=== PATIENT | female | born 1960 | race Caucasian/White ===

== ENCOUNTER → 2016-08-03 | Outpatient (CLI) | payer BC ==
[~2016-08-03] MED LIST: CLEOCIN HCL300 MG PO; PERCOCET 325 MG1 TA2 PO; ZOFRAN 4MG T4 MG/TAB PO
== END ==
LOC: MC.RAD 07:00
DX: Z12.31 Encounter for screening mammogram for malignant neoplasm of breast (principal)

== ENCOUNTER → 2017-08-27 | Outpatient (CLI) | payer BC | LOC: MC.RAD 08:12 | DX: Z12.31 Encounter for screening mammogram for malignant neoplasm of breast (principal) ==

== ENCOUNTER 2018-08-29 06:30 | Day surgery (SDC) | payer BC ==
[~2018-08-29] VITALS: Ht 160 cm; Wt 78.1 kg
[2018-08-29] MEDS ORDERED: CENTRUM SILVER1 CTB PO (06:48)
[2018-08-29] MEDS ORDERED: CITRACAL + D CA1 TAB (06:49)
[2018-08-29 07:15] VITALS: BP 111/68; PULSE 78; TEMP 98.5
[2018-08-29 07:56] VITALS: BP 99/62; PULSE 64; TEMP 97.7
[2018-08-29 08:11] VITALS: BP 101/64; PULSE 68
--- NOTE | 2018-08-29 08:19 | NUR ---
PATIENT RETURNS VIA CART TO BAY 5. ALERT AND ORIETNED X 4. HEARTRATE REGULAR SINUS RYTHYM, LUNGS CLEAR BILATERALLY, BOWEL SOUNDS ALL 4 QUADRANTS. GIVEN JUICE AND BLUEBERRY MUFFIN. POST OP VS STARTED. AT BEDSIDE. CALL LIGHT IN REACH. PHYSICIAN IN ROOM WITH DISCHARGE TEACHING.
--- NOTE | 2018-08-29 08:22 | NUR ---
PATIENT REMAINS STABLE, GAIT STEADY TO BATHROOM. DENIES N/V OR PAIN. WILL CONTINUE TO MONITOR. CALL LIGHT IN REACH. REMAINS AT BEDSIDE.
[2018-08-29 08:26] VITALS: BP 106/72; PULSE 66; TEMP 97.7
[2018-08-29 08:40] VITALS: BP 107/86; PULSE 68; TEMP 98
--- NOTE | 2018-08-29 09:11 | NUR ---
MILD NAUSEA AND VOMITTING NOTED. EMESIS BAG GIVEN, PATIENT DECLINES ANY OTYHER INTERVENTION AT THIS TIME. CALL LIGHT IN REACH.
--- NOTE | 2018-08-29 09:12 | NUR ---
PATIENT DISCHARGE INSTRUCTIONS GIVEN TO PATIENT AND SPOUSE. BOTH VERBALIZED UNDERSTANDING. IV DC'D. PRESSURE HELD. DENIES QUESTIONS. PATIENT TAKEN TO PERSONAL VEHICHLE VIA WHEELCHAIR, HOME WITH HER .
== END 2018-08-29 09:18 | disposition home or self-care (01) ==
LOC: SDCO 06:30
DX: Z12.11 Encounter for screening for malignant neoplasm of colon (principal)
CPT/HCPCS: J2250; J3010; J7030

== ENCOUNTER → 2018-09-05 | Outpatient (CLI) | payer BC ==
[~2018-09-05] MED LIST changes: +CENTRUM SILVER1 CTB PO; +CITRACAL + D CA1 TAB
== END ==
LOC: MC.RAD 07:54
DX: Z12.31 Encounter for screening mammogram for malignant neoplasm of breast (principal); N63.10 Unspecified lump in the right breast, unspecified quadrant; N63.20 Unspecified lump in the left breast, unspecified quadrant

== ENCOUNTER → 2018-09-10 | Outpatient (CLI) | payer BC | LOC: MC.RAD 10:58 | DX: R59.0 Localized enlarged lymph nodes (principal); R92.8 Other abnormal and inconclusive findings on diagnostic imaging of breast ==

== ENCOUNTER → 2019-04-06 | Outpatient (CLI) | payer BC | LOC: MC.RAD 14:05 | DX: N63.0 Unspecified lump in unspecified breast (principal) ==

== ENCOUNTER → 2019-09-14 | Outpatient (CLI) | payer BC | LOC: MC.RAD 16:46 | DX: Z12.31 Encounter for screening mammogram for malignant neoplasm of breast (principal); N63.20 Unspecified lump in the left breast, unspecified quadrant ==

== ENCOUNTER → 2019-09-18 | Outpatient (CLI) | payer BC | LOC: MC.RAD 10:00 | DX: N63.20 Unspecified lump in the left breast, unspecified quadrant (principal) | CPT/HCPCS: G0279 ==

== ENCOUNTER → 2020-11-04 | Outpatient (CLI) | payer BC | LOC: MC.RAD 07:45 | DX: Z12.31 Encounter for screening mammogram for malignant neoplasm of breast (principal) ==

== ENCOUNTER → 2021-11-15 | Outpatient (CLI) | payer BC | LOC: MC.RAD 07:53 | DX: Z12.31 Encounter for screening mammogram for malignant neoplasm of breast (principal) ==

== ENCOUNTER → 2023-12-18 | Outpatient (CLI) | payer BC | LOC: MC.RAD 08:03 | DX: Z12.31 Encounter for screening mammogram for malignant neoplasm of breast (principal); N63.20 Unspecified lump in the left breast, unspecified quadrant ==